=== PATIENT | female | born 1970 | race Caucasian/White ===

== ENCOUNTER → 2017-01-30 | Outpatient (CLI) | payer OTHER ==
--- NOTE | 2017-01-30 14:50 | DI ---
PA /LATERAL CHEST X-RAY, 01/30/2017 10:03 AM : Clinical History: Cough. Previous Exam: None at this facility. There is no acute soft tissue or bony abnormality. Heart size is normal. There is marked elevation of the right diaphragm with the diaphragm reaching the level of the right hilum. There is also colon-he patic interposition. No acute infiltrate or effusion is present. Mediastinal structures are normal. T here are no pulmonary nodules. Reading: There is no acute infiltrate or effusion. Marked elevation of the right diaphragm is noted along with colon-hepatic interposition.
== END ==
LOC: MOB RAD 10:03
PROVIDERS: ATTEND Physician Assistant
DX: R05 Cough (principal); J06.9 Acute upper respiratory infection, unspecified
CPT/HCPCS: 71020

== ENCOUNTER → 2017-03-08 | Outpatient (CLI) | payer OTHER ==
[2017-03-08 10:39] LABS: BILIRUBIN,URINE SMALL (NEG); COLOR,URINE YELLOW; GLUCOSE, URINE (UA) NEGATIVE (NEG); NITRATE,URINE NEGATIVE (NEG); OCCULT BLOOD,URINE SMALL (NEG); PH,URINE 5.5 (5.0-8.5); PROTEIN,URINE TRACE mg/dl (NEG); UROBILINOGEN,URINE 0.2 EU/dL (0.2)
[2017-03-08 10:44] LABS: CLARITY,URINE CLEAR (CLEAR)
[2017-03-08 10:56] LABS: BACTERIA,URINE FEW; SQUAMOUS EPITHELIAL CELL,UR FEW; URINE SAMPLE TYPE VOID
== END ==
LOC: MOB LAB 10:18
PROVIDERS: ATTEND Physician Assistant Medical
DX: R30.0 Dysuria (principal)
CPT/HCPCS: 81001; 87088

== ENCOUNTER → 2017-03-08 | Outpatient (CLI) | payer OTHER ==
[2017-03-08 11:32] LABS: BASOPHILS % (AUTO) 0.9 % (0-1); EOSINOPHILS # (AUTO) 0.39 10*3/UL; EOSINOPHILS % (AUTO) 3.5 % (0-8); HEMATOCRIT 54.1 % (37.0-47.0); HEMOGLOBIN 17.4 g/dL (12.0-16.0); LYMPHOCYTES # (AUTO) 2.48 10*3/uL; MEAN CORPUSCULAR HEMOGLOBIN 30.6 PG (27-31); MEAN CORPUSCULAR HGB CONC 32.2 g/dL (33-37); MEAN CORPUSCULAR VOLUME 95.2 FL (81-99); MEAN PLATELET VOLUME 8.8 FL (7.4-12.2); MONOCYTES # (AUTO) 0.77 10*3/UL (0.3-0.8); NEUTROPHILS # (AUTO) 7.23 10*3/UL; NEUTROPHILS % (AUTO) 65.6 % (50-80); RED BLOOD COUNT 5.68 10^6/uL (4.20-5.40)
[2017-03-08 11:34] LABS: PLATELET MORPHOLOGY COMMENT NORMAL MORPHOLOGY (NORM); RBC MORPHOLOGY COMMENT NORMAL MORPHOLOGY (NORM); WBC MORPHOLOGY COMMENT NORMAL MORPHOLOGY (NORM)
[2017-03-08 11:47] LABS: BLOOD UREA NITROGEN 9 mg/dL (7-22); CALCIUM 8.7 mg/dL (8.7-10.7); CHOL/HDL RATIO 4.23 RATIO (0-4.0); EST GLOMERULAR FILTRATION > 60 (>60 ml/min/1.73m(2)); HDL CHOLESTEROL 39 mg/dL (40-150); SERUM CHOLESTEROL 165 mg/dL (120-200)
[2017-03-08 13:00] LABS: FREE T4 (FREE THYROXINE) 1.22 ng/dL (0.93-1.71)
--- NOTE | 2017-03-08 14:12 | DI ---
ABDOMINAL ULTRASOUND, 03/08/2017 10:54 AM: Clinical History: Right upper quadrant abdominal pain. Previous Exam: None at this facility. Scans are performed through the right and left upper quadrants in multiple projections. The gallbladder is well distended and has a normal wall thickness. There are no gall stones. Common b ile duct measures 4 mm. The gallbladder is extrinsically compressed on the undersurface secondary to a large complex mass that measures roughly 16 cm in diameter and does show vascularity with in the le vannessa and surrounding the lesion. There is a second inhomogeneous solid lesion that is larger and is l ocated in the left upper quadrant. This mass measures approximately 15 x 20 x 25 cm and does show int ernal vascularity. The liver may have fatty infiltration but is otherwise normal. The spleen is tru l. Both kidneys are also normal. The pancreas is obscured by gas. The IVC and aorta are normal. READIN. There are 2 large masses located in the right and left upper quadrants. The left upper quadrant m ass is solid and inhomogeneous and measures approximately 15 x 20 x 25 cm. The right upper quadrant m ass is smaller and has cystic components and measures roughly 16 cm in diameter. Both show hypervascu larity in the smaller lesion has vascularity around the perimeter of the lesion. The exact origins in etiology of these lesions is uncertain, but the most likely site of origin would be small bowel. 2. Both kidneys and the spleen and the gallbladder are normal. The gallbladder is extrinsically comp ressed by the right upper quadrant mass. 3. There may be fatty infiltration of the liver but the liver is otherwise normal in appearance. 4. The pancreas is obscured by gas. The IVC and aorta are normal.
--- NOTE | 2017-03-08 18:44 | DI ---
CT ABDOMEN SCAN WITH IV CONTRAST, 03/08/2017 3:00 PM : Clinical History: Right upper quadrant pain. Abnormal ultrasound of the abdomen revealed large masses in the right and left upper quadrant. Previous Exam: None at this facility. Comparison is made with the abdominal ultrasound performed toda y. Scans are performed from the lower lung bases through the liver and kidneys with IV contrast. 100 ml of Isovue 300 was injected IV. Low density oral barium contrast (Volumen - low density CT enterograph y oral contrast) was administered for all phases of the exam. Water was used for rectal contrast. The heart is normal but there is a small pericardial effusion. There is a large right-sided anterior diaphragmatic hernia through which the distal half of the ascending colon, the hepatic flexure, and t he right side of the transverse colon have herniated along with mesenteric fat. The liver is normal i n size and no definite hepatic lesion is identified. The gallbladder is grossly normal, but is displa lam anteriorly and laterally to the right side by a large mass that will be described in the next sec tion. There is no abnormality of the spleen, pancreas, and adrenal glands. Both kidneys are normal in size, shape, position and contour. There is no hydronephrosis or hydroureter. No renal or ureteral c alculi are present. There are no abnormal retrocrural or periaortic nodes. No ascites is present. READIN. There is a large right-sided anterior diaphragmatic hernia through which almost all of the right colon and the transverse colon have herniated along with a large amount of mesenteric fat. 2. Small pericardial effusion. 3. Large mass described below. CT PELVIS SCAN WITH IV CONTRAST, 03/08/2017 3:00 PM: Clinical History: See above. Previous Exam: None at this facility. Scans are performed from just superior to the umbilicus to the symphysis pubis with IV contrast. This is the same bolus of contrast used for the CT scans of the abdomen. There is a large mass in the abdomen and extending into the pelvis that may be arising from the uteru s. This mass measures 27 mm in maximum transverse diameter by 21 cm in maximum AP dimension by approx imately 35 cm in maximum length. There is a second smaller mass that appears to arise from this large r mass in this is located in the right upper quadrant. This second smaller mass measures approximatel y 15 cm in diameter and is more inhomogeneous than the larger component. The smaller mass has lower d ensity within the center of the lesion and on ultrasound portions of this area were cystic. Both comp onents show increased vascularity. This lesion may represent a massively enlarged uterus secondary to multiple fibroids with the lesion in the right upper quadrant representing a fibroid that has underg one infarction, and this may account for the right upper quadrant pain. Because of the size in the ap pearance of the smaller lesion, a leiomyosarcoma must be considered in the differential. Because of t he herniated right colon and transverse colon, the cecum is located in the epigastric region along wi th the appendix which is normal. The small bowel, terminal ileum, and ileocecal valve are normal othe r than being displaced superiorly and to the left of midline secondary to the large pelvic and lower abdominal mass. The colon is unremarkable except for the large herniated component in the right thora cic cage, with other portions of the colon being "draped" over the superior and lateral margins of th e mass. There are no abdominal wall hernias. There are no blastic or lytic bony changes in the visual ized portions of the thoracic cage as well as in the lumbar spine, sacrum, and pelvis. Both hips and both proximal femurs are also normal. READIN. There is a large mass in the lower abdomen and pelvis that has the configuration of a massively e nlarged uterus with a secondary mass along the superior and right lateral aspect. This mass probably originated from the uterus and the smaller component may represent tissue that has undergone an infar ction. Both masses show increased vascularity. The actual uterus and neither ovary are identified. Th is mass measures in maximum dimensions 15 x 21 x 35 cm. The smaller component in the right upper quad rant measures 15 cm in diameter. If this mass were to be of uterine origin, then a leiomyosarcoma mus t also be considered in the differential. 2. The mass is causing extrinsic compression on the bladder and the gallbladder and probably account s for the large amount of right colon and transverse colon and mesenteric fat that has herniated thro ugh the anterior aspect of the right diaphragm. 3. Neither ovary is visualized. There is no ascites, adenopathy, or evidence of bone metastases.
== END ==
LOC: LAB 11:20
PROVIDERS: ATTEND Physician Assistant Medical
DX: R10.11 Right upper quadrant pain (principal); R30.0 Dysuria; R53.83 Other fatigue; I31.3 Pericardial effusion (noninflammatory)
CPT/HCPCS: 36415; 74177; 76700; 80053; 80061; 84439; 84443; 85025; 85610; 85730

== ENCOUNTER 2017-04-01 19:11 | Emergency (ER) | payer OTHER ==
[2017-04-01 19:49] VITALS: RESP 22; TEMP 98.2
--- NOTE | 2017-04-01 21:34 | PDOC ---
Upper Extremity Problem HPI - General Chief Complaint: General Medical Stated Complaint: PULSE HIGH AND HARD SPOT WHERE IV PREVIOUS Date Seen by Provider: 04/01/17 Time Seen by Provider: 19:27 Source: POSITIVE: Patient Exam Limitations: POSITIVE: No limitations Nurse's Notes Reviewed & Considered: Yes - History of Present Illness Initial Comments: The patient is a 47-year-old female. She states that on 21 March she underwent a hysterectomy along with removal of a large pelvic cyst, which reportedly weight 17 pounds. She also had repair of an abdominal hernia. Surgery was done at the [facility] in [place]. She had an open laparotomy. She was discharged on March 29, and IV in her left antecubital fossa was removed on that date. She has since noticed that she has had some subcutaneous "hardness "develop in the left antecubital area at the site of her previous IV, which is somewhat tender on palpation. No sensory motor or vascular deficits. No dyspnea, cough or hemoptysis. No GI or symptoms. Body Location Affected: REPORTS: Upper Extremity (L) Timing: REPORTS: Gradual, Getting Worse Duration: >24 hours (Over the past 2 days) Severity: Moderate Quality: REPORTS: "Pain" (Discomfort on palpation over the areas of "hardness", left antecubital fossa.) Recent Injury: REPORTS: Yes (Recent IV, left antecubital fossa) Context of Injury: REPORTS: Other (As above) Location at Time of Onset: REPORTS: Home Modifying Factors: REPORTS: Other (Somewhat exacerbated by firm palpation) Associated Symptoms: REPORTS: See Diagram. DENIES: Fever, Chills, Diaphoresis, Shortness of Breath, Difficulty Breathing, Chest Pain, Chest Discomfort, Nausea , Vomiting, Neck Pain, Jaw Pain, Back Pain, Other Similar Symptoms Previously: No Recent Care Received: Recently Seen, Treated by MD, Hospitalized, Surgery (As above) Any Prior Injuries Related to Current Complaint?: No - Patient Home Medications Home Medications: Home Medications Albuterol Sulfate [Proair Hfa] 1 - 2 puff INH Q4-6H #1 inhaler 01/30/17 Levothyroxine Sodium [Synthroid] 50 mcg PO DAILY 04/01/17 Morphine Sulfate ER [MS Contin] 15 mg PO DAILY 04/01/17 Oxycodone HCl 5 - 10 mg PO Q4H PRN 04/01/17 - Patient Allergies Allergies/Adverse Reactions: Allergies Allergy/AdvReac Type Severity Reaction Status Date / Time No Known Drug Allergies Allergy NOT Verified 04/01/17 19:27 APPLICABLE Past Medical History - heen HEENT History: Denies History Cardiovascular History: Denies History Respiratory History: Asthma, Home Oxygen Use Additional Respiratory History: SEASONAL ALLERGIES/ASTHMA WITH EXERTION. Pt on home oxygen 1L at this time while "right lung heals" from a partial lung collapse related to "large cyst pushing everything up". Per pt and pt's daughter report. Gastrointestinal History: Other (please comment) Additional Gastrointestinal History: Pt has significant abdominal surgery that included hernia repair, uterine cyst removal and total hyterectomy. Genitourinary History: Denies History Endocrine History: Hypothyroidism Musculoskeletal History: Denies History Prosthesis or Implant: No Neurological History: Denies History Blood Disorders: Denies History Psychiatric History: Denies History History of Sexually Transmitted Diseases: No Female Reproductive History: Hysterectomy Obstetrical History: Denies History Cancer History: Denies History In Past Year Been Physically Harmed or Verbally Threatened: No History of MDRO: No History of Other Communicable Diseases: No Tobacco Use: Current Every Day Smoker Alcohol Use: None Substance Use Type: None Previous Surgical History: Yes Type / Date of Surgery: T&A/ BILAT EAR TUBES/ GANGLION CYST RIGHT WRIST. Total hysterectomy, uterine cyst removal, hernia repair Anesthesia Reactions: No Malignant Hyperthermia: No Significant Family History: No pertinent family hx Past Medical History Reviewed: Reviewed - No Changes ROS - Limitations ROS Limitations: No Limitations Constitution: REPORTS: Denies Symptoms Cardiovascular: REPORTS: Denies Cardiac Symptoms Respiratory: REPORTS: Denies Resp Symptoms Neurological: REPORTS: Denies Neuro Symptoms Gastrointestinal: REPORTS: Denies GI Symptoms Endocrine: REPORTS: Denies Symptoms Musculoskeletal: REPORTS: Denies MS Symptoms Genitourinary: REPORTS: Denies Symptoms Eyes: REPORTS: Denies Symptoms ENT: REPORTS: Denies Symptoms Skin: REPORTS: Other (Subcutaneous "hardness"around site of recent IV, left antecubital fossa) Lympathic: REPORTS: Denies Lympathic Symptoms Immunologic: POSITIVE: Denies Symptoms Psychiatric: POSITIVE: Denies Psych Symptoms Upper Extremity Problem Exam - General Appearance General Appearance: POSITIVE: Alert, Cooperative, No Acute Distress. NEGATIVE: No Evidence of Trauma (Bruising at site of recent IV, left antecubital fossa) - Upper Extremity Upper Extremity: POSITIVE: No Edema, Normal ROM, Joints Normal, Tenderness (At site of superficial thrombophlebitis left antecubital fossa), See Diagram. NEGATIVE: Normal Inspection, Non-Tender, Swelling, Limited Active ROM, Limited Passive ROM, Limited Functional ROM, Limited ROM d/t Pain, Axillary Lymphadenopathy, Positive Olga Test, Joint Swelling, Joint Effusion Vascular: POSITIVE: No Vascular Compromise, Full Pulses, Equal Pulses - Skin Skin: POSITIVE: Other (Superficial thrombophlebitis left antecubital fossa) - Neuro / Psych Peripheral Neuro Exam: POSITIVE: Sensation Normal, Motor Normal Central Neuro Exam: POSITIVE: Oriented to Person, Oriented to Place, Oriented to Time, CN's Normal as Tested, Normal Speech, Normal Cognition, Appropriate Mood, Appropriate Affect - Neck/Back Neck / Back: POSITIVE: Normal Inspection - Respiratory / CVS Respiratory / CVS: POSITIVE: No Respiratory Distress, Breath Sounds Normal, Regular Rate & Rhythm, Heart Sounds Normal Peripheral Pulses: Radial (R): 2+, Radial (L): 2+ - Abdomen Abdomen: Soft: (All Quadrants), Normal Bowel Sounds: (All Quadrants), Denies Tenderness: (All Quadrants), No Splenomegaly: (All Quadrants), No Hepatomegaly: (All Quadrants), No Guarding: (All Quadrants), No Rebound: (All Quadrants), No Palpable Pulse: (All Quadrants), No Palpabale Mass: (All Quadrants), No Distention: (All Quadrants), No Rigidity: (All Quadrants) Additional Abdominal Details: Abdominal exam reveals a recent long midline abdominal incision site which is healing well and there is no signs of infection. Mild tenderness on palpation along the margins of the incision site; no masses, organomegaly or rebound. Bowel sounds are active. Images - Upper Extremities Upper Extremities: 1 - Superficial thrombophlebitis Upper Ext Problem Progress - Results Reviewed by me Xrays/CTs/US Reviewed by me: Yes Discussed with Radiologist: Yes Radiology Findings: No deep vein thrombosis on ultrasound of left upper extremity.; Results discussed with the photo mask processor. - Patient's Progress Pain Medication Addressed: POSITIVE: Yes (Recommended Aleve or Advil) School/Work Release Addressed: POSITIVE: Not Applicable Re-Examine Time:: 21:00 Re-Examine Comment: Diagnosis superficial thrombophlebitis discussed with patient. Patient reassured that there was no evidence of any deep vein thrombosis. Status: POSITIVE: Unchanged - Consult Counseled: POSITIVE: Patient, RE: Radiology Results, RE: DX, RE: Need for F/U Patient Care Time - Estimated PCT Patient Care Time (In Minutes): 30 Vital Signs - Recent Vital Signs Vital Signs: Vital Signs (Last 8 hours) Temp Pulse Resp BP Pulse Ox 04/01/17 19:15 98.2 F 96 22 119/84 93 - VS Reviewed Vital Signs Reviewed: Yes Discharge Clinical Impression: Thrombophlebitis arm Discharge Disposition: Discharged to Home Condition: Stable Patient Instructions Given at Discharge: Superficial Thrombophlebitis (ED) Additional Instructions: You have some blood clots in the superficial veins of your left arm at the site of your recent IV. There is no evidence of any clots in the deep veins. Superficial clots of this nature do not cause any embolization to the lung, heart or brain. He did not require anticoagulants. These clots should gradually resolved, but it can take several weeks. Advil or Aleve for discomfort. Warm moist compresses to your left arm at the area involved. Return here anytime if condition worsens. Follow-up with your primary care provider. Follow Up With: AMERICO RUBI [Primary Care Provider] - (Return here anytime if condition worsens. Follow-up with your primary care provider.)
--- NOTE | 2017-04-02 08:18 | DI ---
US UP/LOW EXT VEINS U/L OR LTD,04/01/2017 7:43 PM: Clinical History: Pain of the left arm Previous Exam: None at this facility. Findings: Multiple grayscale and color Doppler sonographic images are obtained through the deep veins of the le ft upper extremity, and demonstrate complete coaptation upon graded compression throughout. Is no remy dence of deep venous thrombosis. Visualized superficial veins are also normal. Impression: No deep venous thrombosis.
== END 2017-04-01 21:20 | disposition home or self-care (01) ==
LOC: ER 19:11
DX: T80.1XXA Vascular complications following infusion, transfusion and therapeutic injection, initial encounter (principal); I80.8 Phlebitis and thrombophlebitis of other sites
CPT/HCPCS: 93971; 99282

== ENCOUNTER → 2017-04-08 | Outpatient (CLI) | payer OTHER ==
--- NOTE | 2017-04-08 16:31 | DI ---
CT ABDOMEN W/O CONTRAST,04/08/2017 3:07 PM: Clinical History: Focal anterior abdominal pain in the region of the incision. Rule out hernia. Previous Exam: March 08, 2017 Findings: Multiple helically acquired CT images are obtained through the abdomen without contrast, and demonstr ate postsurgical changes consistent with the midline incision. There is also new inflammatory changes involving the omental fat just anterior to the transverse colon with surrounding inflammation and ed chery. There is no cystic structure. Intra-abdominal structures are unremarkable. There is no evidence of herniation or fascial defect. There are bilateral pleural effusions noted with some subsegmental a telectasis predominantly within the left lung base. Diffuse skeletal structures are unremarkable. There is also an old avulsion fracture involving the an terior margin of the superior endplate of the second lumbar vertebral body. Mild facet arthropathy is noted as well. There is near complete loss of intervertebral disc height at L5/S1 with vacuum disc phenomenon. Impression: Focal inflammatory fat involving the omentum with a hypodense central portion most consistent with ep iploic appendagitis. This contacts the anterior abdominal wall, and likely leads to some focal perit onitis. Correlate with focal point tenderness of the anterior abdomen. No evidence of hernia.
== END ==
LOC: US 15:04
PROVIDERS: ATTEND Physician Assistant Medical
DX: R19.00 Intra-abdominal and pelvic swelling, mass and lump, unspecified site (principal)
CPT/HCPCS: 74150

== ENCOUNTER → 2017-05-07 | Outpatient (CLI) | payer OTHER | LOC: LAB 10:52 | PROVIDERS: ATTEND Physician Assistant Medical | DX: E03.9 Hypothyroidism, unspecified (principal) | CPT/HCPCS: 36415; 84443 ==